=== PATIENT | male | born 1990 | race Caucasian/White ===

== ENCOUNTER 2017-09-06 10:36 | Inpatient (IN) | payer OTHER ==
[~2017-09-06] VITALS: Ht 195.6 cm; Wt 85.4 kg
[2017-09-06 10:41] VITALS: Ht 195.6 cm; Wt 85.4 kg
[2017-09-06] MEDS ORDERED: ONDANSETRON (ODT) 4 MG TAB ODT STA (11:37)
--- NOTE | 2017-09-06 11:59 | ERD ---
ER Documentation Chief Complaint Chief Complaint abdominal pain today HPI 26-year-old male otherwise healthy comes in with mid abdominal pain starting today. The patient describes it as achy pain, moderate to severe and is localized. He states that it does not radiate elsewhere, and reports associated nausea vomiting that is nonbloody nonbilious. He denies any fevers, chills, chest pain, shortness of breath. ROS All systems reviewed and are negative except as per history of present illness. Allergies Allergies: Coded Allergies: No Known Allergy (Unverified , 09/06/17) PMhx/Soc Medical and Surgical Hx: pt denies Medical Hx History of Surgery: Yes (Appendectomy) Hx Tobacco Use: No Physical Exam Vitals Vital Signs Date Time Temp Pulse Resp B/P Pulse Ox O2 Delivery O2 Flow Rate FiO2 09/06/17 10:41 98.2 86 18 135/92 98 Physical Exam General: Well-developed, well-nourished. The patient appears in no acute distress. HEENT: Head is normocephalic, atraumatic. No scleral icterus. Pupils are equal , round, and reactive. Oral mucous membranes are moist. No pharyngeal erythema. Neck: Supple. Nontender. Lungs: Clear to auscultation. Normal air movement. Heart: Regular rate and rhythm. S1 and S2 are normal. No murmurs, gallops, or rubs. Abdomen: Soft, scar present from previous lap appendectomy, there is mid abdominal tenderness, nondistended. Bowel sounds are normoactive. No masses, no hepatosplenomegaly, no rebound pain or guarding. Extremities: No clubbing or cyanosis. Normal pulses. Moving extremities x 4. No weakness. Neurologic: Alert and oriented 3. No focal deficits. Skin: Normal turgor. No rash or lesions. Result Diagram: 09/06/17 1201 09/06/17 1201 Results 24 hrs Laboratory Tests Test 09/06/17 12:01 White Blood Count 8.310^3/ul Red Blood Count 5.5110^6/ul Hemoglobin 16.7g/dl Hematocrit 47.7% Mean Corpuscular Volume 86.6fl Mean Corpuscular Hemoglobin 30.3pg Mean Corpuscular Hemoglobin Concent 35.0g/dl Red Cell Distribution Width 11.5% Platelet Count 93952^3/UL Mean Platelet Volume 9.0fl Neutrophils % 72.1% Lymphocytes % 16.5% Monocytes % 9.7% Eosinophils % 1.0% Basophils % 0.5% Nucleated Red Blood Cells % 0.0/100WBC Neutrophils # 6.010^3/ul Lymphocytes # 1.410^3/ul Monocytes # 0.810^3/ul Eosinophils # 0.110^3/ul Basophils # 0.010^3/ul Nucleated Red Blood Cells # 0.010^3/ul Sodium Level 142mmol/L Potassium Level 3.9mmol/L Chloride Level 100mmol/L Carbon Dioxide Level 31mmol/L Anion Gap 15 Blood Urea Nitrogen 12mg/dl Creatinine 1.09mg/dl Glucose Level 106mg/dl Calcium Level 9.7mg/dl Total Bilirubin 1.1mg/dl Direct Bilirubin 0.00mg/dl Indirect Bilirubin 1.1mg/dl Aspartate Amino Transf (AST/SGOT) 45IU/L Alanine Aminotransferase (ALT/SGPT) 40IU/L Alkaline Phosphatase 86IU/L Total Protein 7.8g/dl Albumin 4.6g/dl Globulin 3.20g/dl Albumin/Globulin Ratio 1.43 Lipase 34U/L Current Medications Medications (Trade) Dose Ordered Sig/Mese[place] Route PRN Reason Start Time Stop Time Status Last Admin Dose Admin Famotidine (Pepcid) 20 mg ONCE ONCE PO 09/06/17 12:00 09/06/17 12:01 DC 09/06/17 11:55 Ondansetron HCl 4 mg 4 mg ONCE STAT ODT 09/06/17 11:37 09/06/17 11:39 DC 09/06/17 11:55 Sodium Chloride (NS) 1,000 ml @ 1,000 mls/hr Q1H ONCE IV 09/06/17 14:00 09/06/17 14:59 DIAGNOSTIC IMAGING REPORT Patient: ALPA ALVAREZ : 1990 Age: 26 Sex: M MR #: [id number] DOS: 09/06/17 1137 Ordering MD: NORAH CARVAJAL PA-C Location: [facility] Room/Bed: PROCEDURE: CT ABDOMEN AND PELVIS WITHOUT CONTRAST. CLINICAL INDICATION: Mid abdominal pain with nausea and vomiting TECHNIQUE: CT scan of the abdomen and pelvis without contrast was performed on a multidetector high-resolution CT scanner. The patient was scanned without intravenous contrast. Coronal and sagittal reformatted images were obtained from the axial source images. Images were reviewed on a high-resolution PACS workstation. The total exam CTDI equals 9.2 mGy and the total exam DLP equals 556 mGy-cm. One or more of the following dose reduction techniques were used: Automated exposure control. Adjustment of the mA and/or kV according to patient size. Use of iterative reconstruction technique. DICOM images are available COMPARISON: None FINDINGS: CT abdomen: The lung bases are clear. The heart size is within normal limits. There is no significant pericardial effusion. Hepatic morphology is within normal limits. No gross contour deforming masses. The gallbladder is within normal normal limits. No evidence of intrahepatic or extrahepatic biliary dilatation. The spleen and pancreas are within normal limits. Both adrenal glands are within normal limits. Both kidneys are in normal anatomic position. No evidence of obstruction or hydronephrosis. No gross renal/ureteric calculi. The visualized GI tract demonstrate multiple loops of dilated small bowel. There appears to be a possible transition point within the lower abdomen/pelvis within a loop of distal small bowel. There is collapse of distal small bowel loops. Postsurgical changes are noted in the region of the cecum. The unenhanced aorta is unremarkable. There is no significant retroperitoneal lymphadenopathy. CT pelvis: The bladder is within normal limits. Free fluid is noted within the pelvis. Rectosigmoid colon is partially collapsed. No significant pelvic lymphadenopathy. The visualized osseous structures demonstrate mild grade 1 retrolisthesis of L5- S1. IMPRESSION: 1. MULTIPLE LOOPS OF DILATED FLUID-FILLED SMALL BOWEL. THERE APPEARS TO BE TRANSITION POINT AND COLLAPSE OF DISTAL LOOPS OF SMALL BOWEL WITHIN THE LOWER ABDOMEN/PELVIS. FINDINGS ARE CONCERNING FOR SMALL BOWEL OBSTRUCTION, POSSIBLY SECONDARY TO UNDERLYING ADHESION. CONSIDER FOLLOW-UP SMALL BOWEL SERIES. 2. Postsurgical changes are noted overlying the cecum. Correlate with possible history of prior appendectomy. 3. Small amount nonspecific free fluid within the pelvis. RPTAT: AAPP Physician Vonda Date Time Electronically viewed and signed by Physician Vonda on 09/06/2017 13:17 1 Procedures/MDM 26-year-old male comes in with mid abdominal pain, nausea vomiting starting today, the patient has a possible bowel obstruction, versus adhesions seen on CT. The patient has not had any bowel movements, and denies any history of flatulence, and we treated for SBO, he had an IV line established, an NG tube was placed. Patient will be admitted for surgical evaluation. My attending physician, Dr. Cueva is aware, and will be admitted. Departure Diagnosis: Primary Impression: Abdominal pain Condition: NORAH Dillard PA-C Sep 06, 2017 11:59
[2017-09-06] MEDS ORDERED: FAMOTIDINE 20 MG TAB PO ONE (12:00)
[2017-09-06 12:13] LABS: BASOPHILS % 0.5 % (0.0-2.0); EOSINOPHILS # 0.1 10^3/ul (0.0-0.5); HEMATOCRIT 47.7 % (42.0-52.0); HEMOGLOBIN 16.7 g/dl (14.0-18.0); LYMPHOCYTES # 1.4 10^3/ul (0.8-2.9); LYMPHOCYTES % 16.5 % (15.0-51.0); MEAN CORPUSCULAR HEMOGLOBIN 30.3 pg (29.0-33.0); MEAN CORPUSCULAR VOLUME 86.6 fl (82.0-101.0); MONOCYTE # 0.8 10^3/ul (0.3-0.9); MONOCYTES % 9.7 % (0.0-11.0); NEUTROPHILS % 72.1 % (39.0-77.0); PLATELET COUNT 289 10^3/UL (140-415); RED BLOOD COUNT 5.51 10^6/ul (4.70-6.10); RED CELL DISTRIBUTION WIDTH 11.5 % (11.5-14.5); WHITE BLOOD COUNT 8.3 10^3/ul (4.8-10.8)
[2017-09-06 12:30] LABS: ALBUMIN 4.6 g/dl (3.3-4.9); ALBUMIN/GLOBULIN RATIO 1.43; BILIRUBIN,INDIRECT 1.1 mg/dl (0-1.1); BILIRUBIN,TOTAL 1.1 mg/dl (0.2-1.3); CALCIUM 9.7 mg/dl (8.4-10.2); CREATININE 1.09 mg/dl (0.61-1.24); POTASSIUM 3.9 mmol/L (3.5-5.1); TOTAL PROTEIN 7.8 g/dl (6.1-8.1)
--- NOTE | 2017-09-06 13:18 | RADRPT ---
PROCEDURE: CT ABDOMEN AND PELVIS WITHOUT CONTRAST. CLINICAL INDICATION: Mid abdominal pain with nausea and vomiting TECHNIQUE: CT scan of the abdomen and pelvis without contrast was performed on a multidetector hig h-resolution CT scanner. The patient was scanned without intravenous contrast. Coronal and sagittal reformatted images were obtained from the axial source images. Images were reviewed on a high-resol [employer] PACS workstation. The total exam CTDI equals 9.2 mGy and the total exam DLP equals 556 mGy-cm. One or more of the following dose reduction techniques were used: Automated exposure control. Adjustment of the mA and/or kV according to patient size. Use of iterative reconstruction technique. DICOM images are available COMPARISON: None FINDINGS: CT abdomen: The lung bases are clear. The heart size is within normal limits. There is no significant pericardia l effusion. Hepatic morphology is within normal limits. No gross contour deforming masses. The gallbladder is wi thin normal normal limits. No evidence of intrahepatic or extrahepatic biliary dilatation. The spleen and pancreas are within normal limits. Both adrenal glands are within normal limits. Both kidneys are in normal anatomic position. No evidence of obstruction or hydronephrosis. No gross renal/ureteric calculi. The visualized GI tract demonstrate multiple loops of dilated small bowel. There appears to be a pos sible transition point within the lower abdomen/pelvis within a loop of distal small bowel. There is collapse of distal small bowel loops. Postsurgical changes are noted in the region of the cecum. The unenhanced aorta is unremarkable. There is no significant retroperitoneal lymphadenopathy. CT pelvis: The bladder is within normal limits. Free fluid is noted within the pelvis. Rectosigmoid colon is pa rtially collapsed. No significant pelvic lymphadenopathy. The visualized osseous structures demonstrate mild grade 1 retrolisthesis of L5-S1. IMPRESSION: 1. MULTIPLE LOOPS OF DILATED FLUID-FILLED SMALL BOWEL. THERE APPEARS TO BE TRANSITION POINT AND ROSALIND APSE OF DISTAL LOOPS OF SMALL BOWEL WITHIN THE LOWER ABDOMEN/PELVIS. FINDINGS ARE CONCERNING FOR SMA LL BOWEL OBSTRUCTION, POSSIBLY SECONDARY TO UNDERLYING ADHESION. CONSIDER FOLLOW-UP SMALL BOWEL SERI ES. 2. Postsurgical changes are noted overlying the cecum. Correlate with possible history of prior appe ndectomy. 3. Small amount nonspecific free fluid within the pelvis. RPTAT: AAPP Cesar Trinh, Physician Date Time Electronically viewed and signed by Cesar Trinh Physician on 09/06/2017 13:17 JL/
[2017-09-06] MEDS ORDERED: SOD CHLORIDE 0.9% 1,000 ML IV ONE (14:00)
--- NOTE | 2017-09-06 14:44 | RADRPT ---
PROCEDURE: XR Chest. CLINICAL INDICATION: NG tube placement TECHNIQUE: Single portable view of the chest was obtained COMPARISON: No priors for comparison FINDINGS: The trachea is midline. The cardiac silhouette and pulmonary vascularity are within normal limits. T he lungs are clear. The costophrenic angles are sharp. There is an NG tube with distal tip at the di stal esophagus. IMPRESSION: 1. No evidence of acute cardiopulmonary disease. 2. NG TUBE WITH DISTAL TIP AT THE DISTAL ESOPHAGUS. RECOMMEND FURTHER ADVANCEMENT. RPTAT: AAPP Physician Vonda Date Time Electronically viewed and signed by Physician Vonda on 09/06/2017 14:43 JL/
--- NOTE | 2017-09-06 14:45 | EN ---
Date/Time of Note Date/Time of Note DATE: 09/06/17 TIME: 14:44 ER Progress Note I have seen and evaluated the patient along with the PA and/or VETERINARY ATTENDANT provider. I agree with the evaluation and plan of care. Please see their documentation for full ER course and evaluation. In short: Nausea vomiting abdominal pain and the patient with prior history of appendectomy On exam: Generalized abdominal pain, decreased bowel sounds Assessment and plan: The patient has a CT showing evidence of potential small bowel obstruction. Given the patient's prior surgical history this seems consistent with his exam. The patient will have an NG tube IV fluids and pain medication. General surgery consultation is necessary. Dr. Mejia Dorsey has been paged multiple times without callback. I spoke to Dr. Turner who recommends calling another surgeon. We will continue to make phone calls for admission. Accepting care team and consultations: I discussed the current laboratory data, diagnostic imaging and emergency care provided. Admitting team: Dr. Ko Admitting team indication: Insurance directed GALO MACHADO MD Sep 06, 2017 14:45
[2017-09-06] MEDS ORDERED: ACETAMINOPHEN 325 MG TAB PO PRN (15:00)
[2017-09-06] MEDS ORDERED: ONDANSETRON 4 MG INJ IV PRN ×2 (15:00→15:30)
--- NOTE | 2017-09-06 15:12 | RADRPT ---
PROCEDURE: XR Chest 1 View. CLINICAL INDICATION: Status post nasogastric tube placement. TECHNIQUE: Single view of the chest was obtained. COMPARISON: September 06, 2017 at 02:39 p.m. FINDINGS: The cardiomediastinal silhouette is within normal limits. Nasogastric tube has its distal end in the expected location of the stomach and proximal side hole at the level of the gastroesophageal juncti on. The lungs are hyperexpanded. No consolidations are identified. No pneumothorax is seen. The os seous structures are unchanged. IMPRESSION: Nasogastric tube has its distal end in the expected location of the stomach and its proximal side ho le at the level of the gastroesophageal junction. Advancement by approximately 5 cm is advised. Hyperexpanded, clear lungs. RPTAT: AA .Jeffrey Oseguera MD, Date Time Electronically viewed and signed by .Jeffrey Oseguera MD, MD on 09/06/2017 15:12 .P/
--- NOTE | 2017-09-06 15:19 | HP ---
Date/Time of Note Date/Time of Note DATE: 09/06/17 TIME: 15:14 Assessment/Plan VTE Prophylaxis VTE Prophylaxis Intervention: ambulation Assessment/Plan Chief Complaint/Hosp Course 26-year-old male with a recent appendectomy, presenting to the emergency room with abdominal pain and intractable nonbilious, nonbloody vomiting started early this morning who was noted with possible small bowel obstruction in the imaging. 1. Possible Small bowel obstruction, likely secondary to postoperative adhesions. Status: Acute -Admit as inpatient. -NG tube decompression, Strict bowel rest, IV fluids, pain control. Obtain small bowel follow-through. -Monitor electrolyte level closely and replete as indicated. -Surgical consult with Dr. Dorsey has been requested and we will follow-up with recommendation. 2. Recent appendectomy. DVT prophylaxis: SCD PUD prophylaxis: Pepcid Rest of the management depend on hospital course. Approximately 60 minute was spent on this history and physical. Patient was seen in collaboration with . Problems: HPI/ROS Admit Date/Time Admit Date/Time Hx of Present Illness This is a 26-year-old male with a past medical history of appendicitis with recent laparoscopic appendectomy 2 months ago, otherwise healthy, presented to the emergency room for evaluation of mid epigastric abdominal pain with intractable nonbilious, nonbloody vomiting that started early this morning. Patient denied any chest pain, palpitation, shortness of breath, dizziness, constipation, diarrhea, fever, chills, hematochezia, hematemesis, melena or other constitutional symptoms. Initial CBC and BMP within acceptable range. Vital signs stable. A CT abdomen and pelvis showed multiple loops of dilated fluid-filled small bowel concerning for small bowel obstruction possibly secondary to underlying adhesion. A small bowel series was recommended for follow-up. In the emergency room patient was treated with IV fluids and pain medication and was admitted for further evaluation. He also had NG tube inserted in the emergency room draining small amount of greenish drainage. A surgery consultation was also called from the emergency room. ROS A 12 point review of system was assessed and is negative other than what is mentioned in the HPI. PMH/Family/Social Past Medical History See HPI Past Surgical History See HPI Social History Patient denied history of alcohol, smoking or illicit drug use. Smoking Status: Never smoker Exam/Review of Systems Vital Signs Vitals Vital Signs Date Time Temp Pulse Resp B/P Pulse Ox O2 Delivery O2 Flow Rate FiO2 09/06/17 10:41 98.2 86 18 135/92 98 Exam Exam General: Well developed,adequately built, not in any acute distress . HEENT: Normocephalic, Atraumatic, No laceration or hematoma; Eyes: PEERL, Conjunctiva clear, Anicteric sclera Neck: Supple without any lymphadenopathy, nontender, no JVD, no carotid bruits, trachea midline, no thyromegaly Cardiac: S1, S2 auscultated, regular rhythm and rate, no mumurs or gallop Pulmonary: Normal respiratory effort. Chest clear to auscultation bilaterally, no adventitious breath sounds GI: With NG tube in place. Having mild tenderness to mid abdominal area. No rebound tenderness or distention. Hypoactive bowel sounds. Genitourinary: Deferred Extremities: No cyanosis, clubbing, or edema. Pulses [2+] bilaterally. Full ROM on all four extremities. No focal weakness appreciated. Neurologic: Alert to person, place, time, and situation. Affect appropriate, intact sensation. Skin: Clean,dry, and intact. No ecchymosis, no rashes, or lesions Labs Result Diagram: 09/06/17 1201 09/06/17 1201 CHRIS ARGUETA NP Sep 06, 2017 15:19
[2017-09-06] MEDS ORDERED: ACETAMINOPHEN 650 MG SUPP PR PRN (15:30)
[2017-09-06] MEDS ORDERED: NACL 0.9% 3 ML SYG IV SCH (15:30)
[2017-09-06] MEDS ORDERED: SOD CHLORIDE 0.9% 500 ML IV ONE (15:30)
[2017-09-06] MEDS: morphine 2 MG INJ IV PRN ×2 (15:46→21:34)
[2017-09-06 16:11] VITALS: TEMP 99.1
[2017-09-06] MEDS: NS + KCL 20 MEQ 1,000 ML IV SCH (17:09)
[2017-09-06 17:21] VITALS: BP 138/83; PULSE 68; RESP 18
[2017-09-06 20:40] VITALS: BP 107/58; RESP 19
[2017-09-07] MEDS: NS + KCL 20 MEQ 1,000 ML IV SCH ×4 (00:50→22:52)
[2017-09-07 02:45] VITALS: BP 102/58; RESP 18
[2017-09-07 05:03] LABS: BASOPHIL # 0.1 10^3/ul (0.0-0.1); BASOPHILS % 0.6 % (0.0-2.0); EOSINOPHILS # 0.1 10^3/ul (0.0-0.5); EOSINOPHILS % 1.7 % (0.0-7.0); HEMATOCRIT 40.7 % (42.0-52.0); HEMOGLOBIN 13.8 g/dl (14.0-18.0); LYMPHOCYTES # 2.1 10^3/ul (0.8-2.9); LYMPHOCYTES % 24.7 % (15.0-51.0); MEAN CORPUSCULAR HEMOGLOBIN 29.9 pg (29.0-33.0); MEAN CORPUSCULAR HGB CONC 33.9 g/dl (32.0-37.0); MEAN CORPUSCULAR VOLUME 88.1 fl (82.0-101.0); MONOCYTES % 11.4 % (0.0-11.0); NEUTROPHIL # 5.2 10^3/ul (1.6-7.5); NEUTROPHILS % 61.4 % (39.0-77.0); PLATELET COUNT 254 10^3/UL (140-415); RED BLOOD COUNT 4.62 10^6/ul (4.70-6.10); RED CELL DISTRIBUTION WIDTH 11.9 % (11.5-14.5); WHITE BLOOD COUNT 8.4 10^3/ul (4.8-10.8)
[2017-09-07 06:20] LABS: ALBUMIN 3.2 g/dl (3.3-4.9); ALBUMIN/GLOBULIN RATIO 1.14; CALCIUM 8.6 mg/dl (8.4-10.2); CHOL/HDL RATIO 2.7 RATIO; CREATININE 1.12 mg/dl (0.61-1.24); MAGNESIUM 1.8 mg/dl (1.7-2.5); PHOSPHORUS 3.2 mg/dl (2.5-4.9); POTASSIUM 3.8 mmol/L (3.5-5.1)
[2017-09-07 06:48] LABS: THYROID STIMULATING HORMONE 0.866 MIU/L (0.465-4.680)
[2017-09-07 08:26] VITALS: BP 110/60; RESP 18
--- NOTE | 2017-09-07 10:26 | CONS ---
Date/Time of Note Date/Time of Note DATE: 09/07/17 TIME: 10:20 Assessment/Plan Assessment/Plan Chief Complaint/Hosp Course 1. ?sbo: CT: noted; currently passing flatus, improved pain -sbft -ngt -npo 2. Abdominal pain: 2/2 above; improved -pain management 3. Normoocytic normochromic anemia: -monitor -transfuse as needed 4. Hypoalbuminemia: -optimize nutrition Thank you. Patient seen and examined in collaboration with Dr. Juan Dorsey. Problems: Consultation Date/Type/Reason Admit Date/Time Date of Consultation: Sep 07, 2017 Type of Consultation: surgical Reason for Consultation ?sbo Referring Provider: GALO MACHADO MD Hx of Present Illness Jefferson Galan is a 26-year-old man who presented with mid abdominal pain starting today. The patient describes it as achy pain, moderate to severe and is localized to the right lower quadrant. He states that it does not radiate elsewhere, and reports associated nausea vomiting that is nonbloody, nonbilious. He denies any fevers, chills, chest pain, shortness of breath, change in bowel pattern. He denies any aggravating or alleviating factors. General surgery was asked to evaluate. Constitutional: No disoriented, No febrile Eyes: No visual change ENT: No congestion, No dysphagia, No pain Respiratory: No cough, No shortness of breath Cardiovascular: No chest pain, No lightheadedness, No palpitations Gastrointestinal: pain, vomiting Genitourinary: No dysuria Musculoskeletal: No neck pain Skin: No bruising, No rash Neurologic: No confusion, No focal-weakness, No headache Psychological: anxiety Past Medical History Medical History: no pertinent history Past Surgical History appendectomy Family History Significant Family History: no pertinent family hx Social History Alcohol Use: other (denies) Smoking Status: Former smoker Drug Use: other (denies) Exam/Review of Systems Vital Signs Vitals Vital Signs Date Time Temp Pulse Resp B/P Pulse Ox O2 Delivery O2 Flow Rate FiO2 09/07/17 08:26 98.2 79 18 110/60 100 09/06/17 16:11 Room Air Intake and Output 09/06/17 09/06/17 09/07/17 14:59 22:59 06:59 Intake Total 1775 ml Output Total 500 ml Balance 1275 ml Exam Constitutional: alert, oriented Psych: no complaints Head: atraumatic, normocephalic Eyes: nl lids, nl sclera ENMT: mucosa pink and moist, nl nasal mucosa & septum, other Neck: non-tender, supple Respiratory: clear to auscultation, normal air movement Cardiovascular: nl pulses, regular rate and rhythm Gastrointestinal: soft, tender, No distended Musculoskeletal: nl extremities to inspection, nl gait and stance Extremities: normal pulses Neurological: nl mental status, nl speech, nl strength Skin: No rash or lesions Results Result Diagram: 09/07/176 09/07/17425 Results 24 hrs Laboratory Tests Test 09/06/17 12:01 09/07/17 04:26 White Blood Count 8.3 8.4 Red Blood Count 5.51 4.62 L Hemoglobin 16.7 13.8 L Hematocrit 47.7 40.7 L Mean Corpuscular Volume 86.6 88.1 Mean Corpuscular Hemoglobin 30.3 29.9 Mean Corpuscular Hemoglobin Concent 35.0 33.9 Red Cell Distribution Width 11.5 11.9 Platelet Count 289 254 Mean Platelet Volume 9.0 9.0 Neutrophils % 72.1 61.4 Lymphocytes % 16.5 24.7 Monocytes % 9.7 11.4 H Eosinophils % 1.0 1.7 Basophils % 0.5 0.6 Nucleated Red Blood Cells % 0.0 0.0 Neutrophils # 6.0 5.2 Lymphocytes # 1.4 2.1 Monocytes # 0.8 1.0 H Eosinophils # 0.1 0.1 Basophils # 0.0 0.1 Nucleated Red Blood Cells # 0.0 0.0 Sodium Level 142 141 Potassium Level 3.9 3.8 Chloride Level 100 106 Carbon Dioxide Level 31 29 Anion Gap 15 10 # Blood Urea Nitrogen 12 11 Creatinine 1.09 1.12 Glucose Level 106 83 Calcium Level 9.7 8.6 Total Bilirubin 1.1 1.0 Direct Bilirubin 0.00 0.00 Indirect Bilirubin 1.1 1.0 Aspartate Amino Transf (AST/SGOT) 45 28 Alanine Aminotransferase (ALT/SGPT) 40 37 Alkaline Phosphatase 86 59 Total Protein 7.8 6.0 #L Albumin 4.6 3.2 #L Globulin 3.20 2.80 Albumin/Globulin Ratio 1.43 1.14 Lipase 34 Hemoglobin A1c 5.0 Phosphorus Level 3.2 Magnesium Level 1.8 Triglycerides Level 51 Cholesterol Level 81 L LDL Cholesterol, Calculated 41 HDL Cholesterol 30 Cholesterol/HDL Ratio 2.7 Thyroid Stimulating Hormone (TSH) 0.866 Medications Medications Current Medications Potassium Chloride/Sodium Chloride (NS-KCl 20 Meq) 1,000 ml @ 125 mls/hr Q8H IV Last administered on 09/07/17 00:50; Admin Dose 125 MLS/HR; Start at 15:08 Ondansetron HCl (Zofran Inj) 4 mg Q6H PRN IV NAUSEA AND/OR VOMITING Last administered on 09/06/17 15:45; Admin Dose 4 MG; Start 09/06/17 at 15:30 Acetaminophen (Tylenol Supp) 650 mg Q6H PRN GA PAIN LEVEL 1-3 OR FEVER; Start 09/06/17 at 15:30 Morphine Sulfate (morphine) 2 mg Q4H PRN IV SEVERE PAIN LEVEL 7-10 Last administered on 09/06/17 21:34; Admin Dose 2 MG; Start 09/06/17 at 15:30 Influenza Virus Vaccine (Fluzone) 0.5 ml ONCE ONCE IM* ; Start 09/08/17 at 09: 00; Stop 09/08/17 at 09:01 SELENA OROZCO NP Sep 07, 2017 10:26
--- NOTE | 2017-09-07 10:30 | PN ---
Date/Time of Note Date/Time of Note DATE: 09/07/17 TIME: 10:28 Assessment/Plan VTE Prophylaxis VTE Prophylaxis Intervention: SCD's Lines/Catheters IV [facility] Type (from [facility]): Peripheral IV Urinary Cath still in place: No Assessment/Plan Chief Complaint/Hosp Course 26-year-old male with a recent appendectomy, presenting to the emergency room with abdominal pain and intractable nonbilious, nonbloody vomiting started early this morning who was noted with possible small bowel obstruction in the imaging. 1. Possible Small bowel obstruction, likely secondary to postoperative adhesions. Status: Acute -Surgery on board and we will follow-up with recommendation. Continue with bowel rest, IV fluids, pain control. Follow-up small bowel x-ray. -Monitor electrolyte level closely and replete as indicated. 2. Recent appendectomy. DVT prophylaxis: SCD PUD prophylaxis: Pepcid Patient was seen in collaboration with . Problems: Subjective 24 Hr Interval Summary Free Text/Dictation No acute overnight episodes. Exam/Review of Systems Vital Signs Vitals Vital Signs Date Time Temp Pulse Resp B/P Pulse Ox O2 Delivery O2 Flow Rate FiO2 09/07/17 08:26 98.2 79 18 110/60 100 09/06/17 16:11 Room Air Intake and Output 09/06/17 09/06/17 09/07/17 14:59 22:59 06:59 Intake Total 1775 ml Output Total 500 ml Balance 1275 ml Exam General: Well developed,adequately built, not in any acute distress . HEENT: Normocephalic, Atraumatic, No laceration or hematoma; Eyes: PEERL, Conjunctiva clear, Anicteric sclera Neck: Supple without any lymphadenopathy, nontender, no JVD, no carotid bruits, trachea midline, no thyromegaly Cardiac: S1, S2 auscultated, regular rhythm and rate, no mumurs or gallop Pulmonary: Normal respiratory effort. Chest clear to auscultation bilaterally, no adventitious breath sounds GI: With NG tube in place-clamped currently. Having mild tenderness to mid abdominal area. No rebound tenderness or distention. Hypoactive bowel sounds. Genitourinary: Deferred Extremities: No cyanosis, clubbing, or edema. Pulses [2+] bilaterally. Full ROM on all four extremities. No focal weakness appreciated. Neurologic: Alert to person, place, time, and situation. Affect appropriate, intact sensation. Skin: Clean,dry, and intact. No ecchymosis, no rashes, or lesions Results Result Diagram: 09/07/176 09/07/17 0426 Results 24 hrs Laboratory Tests Test 09/06/17 12:01 09/07/17 04:26 White Blood Count 8.3 8.4 Red Blood Count 5.51 4.62 L Hemoglobin 16.7 13.8 L Hematocrit 47.7 40.7 L Mean Corpuscular Volume 86.6 88.1 Mean Corpuscular Hemoglobin 30.3 29.9 Mean Corpuscular Hemoglobin Concent 35.0 33.9 Red Cell Distribution Width 11.5 11.9 Platelet Count 289 254 Mean Platelet Volume 9.0 9.0 Neutrophils % 72.1 61.4 Lymphocytes % 16.5 24.7 Monocytes % 9.7 11.4 H Eosinophils % 1.0 1.7 Basophils % 0.5 0.6 Nucleated Red Blood Cells % 0.0 0.0 Neutrophils # 6.0 5.2 Lymphocytes # 1.4 2.1 Monocytes # 0.8 1.0 H Eosinophils # 0.1 0.1 Basophils # 0.0 0.1 Nucleated Red Blood Cells # 0.0 0.0 Sodium Level 142 141 Potassium Level 3.9 3.8 Chloride Level 100 106 Carbon Dioxide Level 31 29 Anion Gap 15 10 # Blood Urea Nitrogen 12 11 Creatinine 1.09 1.12 Glucose Level 106 83 Calcium Level 9.7 8.6 Total Bilirubin 1.1 1.0 Direct Bilirubin 0.00 0.00 Indirect Bilirubin 1.1 1.0 Aspartate Amino Transf (AST/SGOT) 45 28 Alanine Aminotransferase (ALT/SGPT) 40 37 Alkaline Phosphatase 86 59 Total Protein 7.8 6.0 #L Albumin 4.6 3.2 #L Globulin 3.20 2.80 Albumin/Globulin Ratio 1.43 1.14 Lipase 34 Hemoglobin A1c 5.0 Phosphorus Level 3.2 Magnesium Level 1.8 Triglycerides Level 51 Cholesterol Level 81 L LDL Cholesterol, Calculated 41 HDL Cholesterol 30 Cholesterol/HDL Ratio 2.7 Thyroid Stimulating Hormone (TSH) 0.866 Medications Medications Current Medications Potassium Chloride/Sodium Chloride (NS-KCl 20 Meq) 1,000 ml @ 125 mls/hr Q8H IV Last administered on 09/07/17t 00:50; Admin Dose 125 MLS/HR; Start at 15:08 Ondansetron HCl (Zofran Inj) 4 mg Q6H PRN IV NAUSEA AND/OR VOMITING Last administered on 09/06/17 15:45; Admin Dose 4 MG; Start 09/06/17 at 15:30 Acetaminophen (Tylenol Supp) 650 mg Q6H PRN [place] PAIN LEVEL 1-3 OR FEVER; Start 09/06/17 at 15:30 Morphine Sulfate (morphine) 2 mg Q4H PRN IV SEVERE PAIN LEVEL 7-10 Last administered on 09/06/17 21:34; Admin Dose 2 MG; Start 09/06/17 at 15:30 Influenza Virus Vaccine (Fluzone) 0.5 ml ONCE ONCE IM* ; Start 09/08/17 at 09: 00; Stop 09/08/17 at 09:01 CHRIS ARGUETA NP Sep 07, 2017 10:30
[2017-09-07] MEDS: morphine 2 MG INJ IV PRN ×3 (11:10→22:30)
--- NOTE | 2017-09-07 16:34 | RADRPT ---
PROCEDURE: XR small-bowel follow-through. CLINICAL INDICATION: Abdominal pain and distension. Rule out obstruction. TECHNIQUE: Multiple overhead radiographs of the abdomen were obtained following the uncomplicated administration of 190 cc oral Omnipaque-300 contrast via the indwelling nasogastric tube. COMPARISON: Abdomen pelvis CT 09/06/2017. FINDINGS: Several mildly to moderately dilated small bowel loops are noted measuring up to 3.5 cm in diameter which is concerning for partial obstruction versus ileus. Contrast flows through the bowel loops and reaches the colon as early as 45 minutes. IMPRESSION: 1. Mildly to moderately dilated small bowel loops concerning for partial obstruction versus ileus. RPTAT: QQ .Lopez Dickens MD, Date Time Electronically viewed and signed by .Lopez Dickens MD, MD on 09/07/2017 16:34 .N/
[2017-09-07 16:41] VITALS: BP 120/67; RESP 18
[2017-09-07 19:48] VITALS: BP 122/70; RESP 18
[2017-09-08 05:54] LABS: BASOPHILS % 0.6 % (0.0-2.0); EOSINOPHILS # 0.2 10^3/ul (0.0-0.5); EOSINOPHILS % 2.6 % (0.0-7.0); HEMATOCRIT 40.6 % (42.0-52.0); HEMOGLOBIN 13.9 g/dl (14.0-18.0); LYMPHOCYTES # 2.1 10^3/ul (0.8-2.9); LYMPHOCYTES % 30.5 % (15.0-51.0); MEAN CORPUSCULAR HEMOGLOBIN 30.2 pg (29.0-33.0); MEAN CORPUSCULAR HGB CONC 34.2 g/dl (32.0-37.0); MEAN CORPUSCULAR VOLUME 88.3 fl (82.0-101.0); MEAN PLATELET VOLUME 9.3 fl (7.4-10.4); MONOCYTE # 0.7 10^3/ul (0.3-0.9); MONOCYTES % 10.8 % (0.0-11.0); NEUTROPHIL # 3.8 10^3/ul (1.6-7.5); NEUTROPHILS % 55.2 % (39.0-77.0); PLATELET COUNT 239 10^3/UL (140-415); RED CELL DISTRIBUTION WIDTH 11.4 % (11.5-14.5); WHITE BLOOD COUNT 6.8 10^3/ul (4.8-10.8)
[2017-09-08] MEDS: NS + KCL 20 MEQ 1,000 ML IV SCH ×3 (06:19→23:13)
[2017-09-08] MEDS: morphine 2 MG INJ IV PRN ×3 (06:20→15:58)
[2017-09-08 06:39] LABS: CALCIUM 8.5 mg/dl (8.4-10.2); CREATININE 1.04 mg/dl (0.61-1.24); POTASSIUM 3.9 mmol/L (3.5-5.1)
[2017-09-08] MEDS ORDERED: INFLUENZA VIRUS VACCINE 0.5 ML (DISPENSING) IM* ONE (09:00)
[2017-09-08] MEDS ORDERED: LORAZEPAM 2 MG INJ IV PRN (11:00)
--- NOTE | 2017-09-08 11:00 | PN ---
Date/Time of Note Date/Time of Note DATE: 09/08/17 TIME: 10:58 Assessment/Plan VTE Prophylaxis VTE Prophylaxis Intervention: ambulation Lines/Catheters IV [facility] Type (from [facility]): Peripheral IV Urinary Cath still in place: No Assessment/Plan Chief Complaint/Hosp Course 26-year-old male with a recent appendectomy, presenting to the emergency room with abdominal pain and intractable nonbilious, nonbloody vomiting started early this morning who was noted with possible small bowel obstruction in the imaging. 1. Small bowel obstruction vs Postoperative Ileus. Clinically improving. Status: Acute -Small bowel x-ray showed partial SBO versus ileus. -Currently with NG tube clamped. We will follow-up with surgery recommendation on diet. -Continue IV fluids, antiemetics and pain control. Add Reglan. -Monitor electrolyte level closely and replete as indicated. 2. Recent appendectomy. 3. Possible GERD. -We will start patient on Protonix. DVT prophylaxis: SCD PUD prophylaxis: Protonix Patient was seen in collaboration with . Problems: Subjective 24 Hr Interval Summary Free Text/Dictation Patient still with NG tube clamped. N.p.o. status. He reports burning epigastric/substernal pain. Exam/Review of Systems Vital Signs Vitals Vital Signs Date Time Temp Pulse Resp B/P Pulse Ox O2 Delivery O2 Flow Rate FiO2 09/07/17 19:48 98.7 60 18 122/70 98 09/06/17 16:11 Room Air Intake and Output 09/07/17 09/07/17 09/08/17 14:59 22:59 06:59 Intake Total 375 ml 1000 ml Output Total 1500 ml Balance 375 ml -500 ml Exam General: Well developed,adequately built, not in any acute distress . HEENT: Normocephalic, Atraumatic, No laceration or hematoma; Eyes: PEERL, Conjunctiva clear, Anicteric sclera Neck: Supple without any lymphadenopathy, nontender, no JVD, no carotid bruits, trachea midline, no thyromegaly Cardiac: S1, S2 auscultated, regular rhythm and rate, no mumurs or gallop Pulmonary: Normal respiratory effort. Chest clear to auscultation bilaterally, no adventitious breath sounds GI: With NG tube in place-clamped currently. Having epigastric burning pain.. No abdominal tenderness, rebound tenderness or distention. Hypoactive bowel sounds. Genitourinary: Deferred Extremities: No cyanosis, clubbing, or edema. Pulses [2+] bilaterally. Full ROM on all four extremities. No focal weakness appreciated. Neurologic: Alert to person, place, time, and situation. Affect appropriate, intact sensation. Skin: Clean,dry, and intact. No ecchymosis, no rashes, or lesions Results Result Diagram: 09/08/17 0453 09/08/17 0453 Results 24 hrs Laboratory Tests Test 09/08/17 04:53 White Blood Count 6.8 Red Blood Count 4.60 L Hemoglobin 13.9 L Hematocrit 40.6 L Mean Corpuscular Volume 88.3 Mean Corpuscular Hemoglobin 30.2 Mean Corpuscular Hemoglobin Concent 34.2 Red Cell Distribution Width 11.4 L Platelet Count 239 Mean Platelet Volume 9.3 Neutrophils % 55.2 Lymphocytes % 30.5 Monocytes % 10.8 Eosinophils % 2.6 Basophils % 0.6 Nucleated Red Blood Cells % 0.0 Neutrophils # 3.8 Lymphocytes # 2.1 Monocytes # 0.7 Eosinophils # 0.2 Basophils # 0.0 Nucleated Red Blood Cells # 0.0 Sodium Level 139 Potassium Level 3.9 Chloride Level 102 Carbon Dioxide Level 26 Anion Gap 15 Blood Urea Nitrogen 12 Creatinine 1.04 Glucose Level 63 #L Calcium Level 8.5 Medications Medications Current Medications Potassium Chloride/Sodium Chloride (NS-KCl 20 Meq) 1,000 ml @ 125 mls/hr Q8H IV Last administered on 09/08/17 06:19; Admin Dose 125 MLS/HR; Start at 15:08 Ondansetron HCl (Zofran Inj) 4 mg Q6H PRN IV NAUSEA AND/OR VOMITING Last administered on 09/06/17 15:45; Admin Dose 4 MG; Start 09/06/17 at 15:30 Acetaminophen (Tylenol Supp) 650 mg Q6H PRN [place] PAIN LEVEL 1-3 OR FEVER; Start 09/06/17 at 15:30 Morphine Sulfate (morphine) 2 mg Q4H PRN IV SEVERE PAIN LEVEL 7-10 Last administered on 09/08/17 10:10; Admin Dose 2 MG; Start 09/06/17 at 15:30 CHRIS ARGUETA NP Sep 08, 2017 11:00
[2017-09-08] MEDS: METOCLOPRAMIDE 10 MG INJ IV SCH ×3 (12:00→18:27)
--- NOTE | 2017-09-08 12:35 | PN ---
Date/Time of Note Date/Time of Note DATE: 09/08/17 TIME: 12:29 Assessment/Plan Lines/Catheters IV Catheter Type (from Nrs): Peripheral IV Rice in Place (from Nrs): No Assessment/Plan Chief Complaint/Hosp Course 1. ?sbo (doubt) vs. ileus; CT and sbft: noted; +bowel function; RLQ pain resolved; now with epigastric burning -start clears trial -ngtube out 2. Abdominal pain: 2/2 above; RLQ pain resolved; now w epigastric burning (? ulcers, gerd) -pain management -consider gi eval 3. Normoocytic normochromic anemia: -monitor -transfuse as needed 4. Hypoalbuminemia: -optimize nutrition Thank you. Patient seen and examined in collaboration with Dr. Juan Dorsey. Problems: Subjective 24 Hr Interval Summary Feels better. RLQ pain resolved. Now complaining of epigastric burning. SBFT noted. +bowel function. No fevers, chills, sob, congested cough, cp, palpitations, retana, dizziness, n/v/d/dysuria. Exam/Review of Systems Vital Signs Vitals Vital Signs Date Time Temp Pulse Resp B/P Pulse Ox O2 Delivery O2 Flow Rate FiO2 09/07/17 19:48 98.7 60 18 122/70 98 09/06/17 16:11 Room Air Intake and Output 09/07/17 09/07/17 09/08/17 14:59 22:59 06:59 Intake Total 375 ml 1000 ml Output Total 1500 ml Balance 375 ml -500 ml Exam Free Text/Dictation Constitutional: alert, oriented Psych: no complaints Head: atraumatic, normocephalic Eyes: nl lids, nl sclera ENMT: mucosa pink and moist, nl nasal mucosa & septum, ngt Neck: non-tender, supple Respiratory: clear to auscultation, normal air movement Cardiovascular: nl pulses, regular rate and rhythm Gastrointestinal: soft, min tender, epigastric No distended Musculoskeletal: nl extremities to inspection, nl gait and stance Extremities: normal pulses Neurological: nl mental status, nl speech, nl strength Skin: No rash or lesions Results Result Diagram: 09/08/17 0453 09/08/17 0453 SELENA OROZCO NP Sep 08, 2017 12:35
[2017-09-08] MEDS: PANTOPRAZOLE 40 MG INJ IV SCH (18:27)
[2017-09-08 19:10] VITALS: BP 102/50; RESP 18
[2017-09-09] MEDS: METOCLOPRAMIDE 10 MG INJ IV SCH ×3 (00:10→12:00)
[2017-09-09 01:31] VITALS: BP 123/76; RESP 20
[2017-09-09 05:49] LABS: BASOPHILS % 0.5 % (0.0-2.0); EOSINOPHILS # 0.2 10^3/ul (0.0-0.5); EOSINOPHILS % 2.8 % (0.0-7.0); HEMATOCRIT 40.3 % (42.0-52.0); HEMOGLOBIN 14.2 g/dl (14.0-18.0); LYMPHOCYTES # 1.7 10^3/ul (0.8-2.9); LYMPHOCYTES % 27.6 % (15.0-51.0); MEAN CORPUSCULAR HEMOGLOBIN 30.6 pg (29.0-33.0); MEAN CORPUSCULAR HGB CONC 35.2 g/dl (32.0-37.0); MEAN CORPUSCULAR VOLUME 86.9 fl (82.0-101.0); MONOCYTE # 0.7 10^3/ul (0.3-0.9); MONOCYTES % 11.9 % (0.0-11.0); NEUTROPHIL # 3.5 10^3/ul (1.6-7.5); NEUTROPHILS % 56.9 % (39.0-77.0); PLATELET COUNT 260 10^3/UL (140-415); RED BLOOD COUNT 4.64 10^6/ul (4.70-6.10); RED CELL DISTRIBUTION WIDTH 11.5 % (11.5-14.5); WHITE BLOOD COUNT 6.2 10^3/ul (4.8-10.8)
[2017-09-09 06:22] LABS: CALCIUM 8.9 mg/dl (8.4-10.2); CREATININE 1.08 mg/dl (0.61-1.24); MAGNESIUM 1.8 mg/dl (1.7-2.5); POTASSIUM 4.1 mmol/L (3.5-5.1)
[2017-09-09] MEDS: PANTOPRAZOLE 40 MG INJ IV SCH (06:40)
[2017-09-09] MEDS: NS + KCL 20 MEQ 1,000 ML IV SCH (06:42)
[2017-09-09 08:35] VITALS: BP 117/64; RESP 18
--- NOTE | 2017-09-09 11:00 | PN ---
Date/Time of Note Date/Time of Note DATE: 09/09/17 TIME: 10:56 Assessment/Plan Lines/Catheters IV Catheter Type (from [facility]): Peripheral IV Rice in Place (from [facility]): No Assessment/Plan Chief Complaint/Hosp Course 1. ?sbo (doubt) vs. ileus; CT and sbft: noted; +bowel function; abdominal pain resolved -tolerated solid diet w +bowel function -may be discharged per medical team with follow up w primary and possible gi specialist if abdominal/epigastric pain recurrent or persistent 2. Abdominal pain: 2/2 above; RLQ pain resolved; now w epigastric burning (? ulcers, gerd) -pain management -as above 3. Normoocytic normochromic anemia: -monitor -transfuse as needed 4. Hypoalbuminemia: -optimize nutrition Thank you. Patient seen and examined in collaboration with Dr. Juan Dorsey. Problems: Subjective 24 Hr Interval Summary Abdominal pain improved w protonix. +bowel function. Able to tolerate solid diet. No fevers, chills, sob, congested cough, cp, palpitations, retana, dizziness, n/v/d/dysuria. Exam/Review of Systems Vital Signs Vitals Vital Signs Date Time Temp Pulse Resp B/P Pulse Ox O2 Delivery O2 Flow Rate FiO2 09/09/17 08:35 98.2 65 18 117/64 97 09/06/17 16:11 Room Air Intake and Output 09/08/17 09/08/17 09/09/17 15:00 23:00 07:00 Intake Total 1900 ml 2500 ml Output Total 800 ml 1000 ml Balance 1100 ml 1500 ml Exam Free Text/Dictation Constitutional: alert, oriented Psych: no complaints Head: atraumatic, normocephalic Eyes: nl lids, nl sclera ENMT: mucosa pink and moist, nl nasal mucosa & septum, ngt Neck: non-tender, supple Respiratory: clear to auscultation, normal air movement Cardiovascular: nl pulses, regular rate and rhythm Gastrointestinal: soft, non tender No distended Musculoskeletal: nl extremities to inspection, nl gait and stance Extremities: normal pulses Neurological: nl mental status, nl speech, nl strength Skin: No rash or lesions Results Result Diagram: 09/09/17 0511 09/09/17 0511 SELENA OROZCO NP Sep 09, 2017 11:00
--- NOTE | 2017-09-09 11:25 | PDOCDIS ---
Discharge Instructions CONDITION Patient Condition: Stable HOME CARE INSTRUCTIONS: Diet Instructions: Regular FOLLOW UP/APPOINTMENTS Follow-up Plan 1.Follow up with primary care physician in 1 week If you don't have one please let someone know, we can give you resources that may help you pick one. You may also call your insurance company to assign one to you. Review your medication list with your nurse before leaving and if you need new prescriptions please let your nurse know. I may have made changes to your home medications or given you new prescriptions, please let your primary doctor know as well. Stay compliant with your medications and report any side effects to your PCP or pharmacist. Return to the ER if you have any concerns and cannot reach your doctors or call your insurance company, they usually have a nurse that can help you. 2. Call 911 or go to the nearest emergency room if experiencing loss of consciousness, dizziness, chest pain, shortness of breath, vomiting/abdominal pain, speech difficulties, motor weakness or any unusual symptoms. CHRIS ARGUETA NP Sep 09, 2017 11:25
[2017-09-09] MEDS ORDERED: METO5TAB58 PO (11:27)
[2017-09-09] MEDS ORDERED: ONDA4TAB8 PO (11:27)
[2017-09-09] MEDS ORDERED: FAMO20TA18 PO (11:27)
--- NOTE | 2017-09-09 11:37 | DS ---
Date/Time of Note Date/Time of Note DATE: 09/09/17 TIME: 11:34 Discharge Summary Admission/Discharge Info Admit Date/Time Sep 06, 2017 at 14:43 Discharge Date/Time Discharge Diagnosis 1. Possible partial small bowel obstruction versus postoperative ileus. Clinically improved. 2. Status post recent appendectomy. 3. Possible GERD. Patient Condition: Stable Consults Dr. Dorsey, surgery Procedures 09/06/2017. CT ABDOMEN AND PELVIS WITHOUT CONTRAST. CT abdomen: The lung bases are clear. The heart size is within normal limits. There is no significant pericardial effusion. Hepatic morphology is within normal limits. No gross contour deforming masses. The gallbladder is within normal normal limits. No evidence of intrahepatic or extrahepatic biliary dilatation. The spleen and pancreas are within normal limits. Both adrenal glands are within normal limits. Both kidneys are in normal anatomic position. No evidence of obstruction or hydronephrosis. No gross renal/ureteric calculi. The visualized GI tract demonstrate multiple loops of dilated small bowel. There appears to be a possible transition point within the lower abdomen/pelvis within a loop of distal small bowel. There is collapse of distal small bowel loops. Postsurgical changes are noted in the region of the cecum. The unenhanced aorta is unremarkable. There is no significant retroperitoneal lymphadenopathy. CT pelvis: The bladder is within normal limits. Free fluid is noted within the pelvis. Rectosigmoid colon is partially collapsed. No significant pelvic lymphadenopathy. The visualized osseous structures demonstrate mild grade 1 retrolisthesis of L5- S1. IMPRESSION: 1. MULTIPLE LOOPS OF DILATED FLUID-FILLED SMALL BOWEL. THERE APPEARS TO BE TRANSITION POINT AND COLLAPSE OF DISTAL LOOPS OF SMALL BOWEL WITHIN THE LOWER ABDOMEN/PELVIS. FINDINGS ARE CONCERNING FOR SMALL BOWEL OBSTRUCTION, POSSIBLY SECONDARY TO UNDERLYING ADHESION. CONSIDER FOLLOW-UP SMALL BOWEL SERIES. 2. Postsurgical changes are noted overlying the cecum. Correlate with possible history of prior appendectomy. 3. Small amount nonspecific free fluid within the pelvis. 09/07/2017. X-ray small bowel follow-through. FINDINGS: Several mildly to moderately dilated small bowel loops are noted measuring up to 3.5 cm in diameter which is concerning for partial obstruction versus ileus. Contrast flows through the bowel loops and reaches the colon as early as 45 minutes. IMPRESSION: 1. Mildly to moderately dilated small bowel loops concerning for partial obstruction versus ileus. Hospital Course This is a 26-year-old male with a recent appendectomy, presenting to the emergency room with abdominal pain and intractable nonbilious, nonbloody vomiting started early this morning who was noted with possible small bowel obstruction in the imaging. Patient had IV fluids and NG tube decompression in the emergency room and was admitted. Patient was seen by surgery colleagues. Patient was treated with bowel rest with IV fluids, Reglan, Zofran and pain medications. Patient did not have any further abdominal pain . NG tube without any drainage. A small bowel x-ray was done and revealed partial small bowel obstruction versus possible ileus. Patient had clinical improvement as evidenced by passing flatus and having regular bowel movements. NG tube was then discontinued and he was started on a clear diet per surgery advised. He was able to tolerate diet and was advanced to regular without any further abdominal discomfort. At this time, patient is feeling back to baseline and he is stable for outpatient follow-up per surgery standpoint. 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 Disposition: Home. Approximately 60 minute was spent in coordinating the discharge on this patient. Patient was seen in collaboration with [facility] [employer] Ondansetron Hcl* (Zofran*) 4 Mg Tablet, 4 MG PO Q6H Y for NAUSEA AND OR VOMITING , #20 TAB Prov:ARGUETA,CHRIS V. PROMOTIONS DIRECTOR 09/09/17 Metoclopramide* (Reglan*) 5 Mg Tablet, 5 MG PO AC MEALS, #21 TAB Prov:ARGUETA,CHRIS V. PROMOTIONS DIRECTOR 09/09/17 Famotidine* (Famotidine*) 20 Mg Tablet, 20 MG PO HS, #30 TAB Prov:ARGUETACATHERINEA V. PROMOTIONS DIRECTOR 09/09/17 Follow-up Plan 1.Follow up with primary care physician in 1 week If you don't have one please let someone know, we can give you resources that may help you pick one. You may also call your insurance company to assign one to you. Review your medication list with your nurse before leaving and if you need new prescriptions please let your nurse know. I may have made changes to your home medications or given you new prescriptions, please let your primary doctor know as well. Stay compliant with your medications and report any side effects to your PCP or pharmacist. Return to the ER if you have any concerns and cannot reach your doctors or call your insurance company, they usually have a nurse that can help you. 2. Call 911 or go to the nearest emergency room if experiencing loss of consciousness, dizziness, chest pain, shortness of breath, vomiting/abdominal pain, speech difficulties, motor weakness or any unusual symptoms. Primary Care Provider Care Physician No Primary Pending Labs Laboratory Tests Test 09/09/17 05:11 White Blood Count 6.210^3/ul (4.8-10.8) Red Blood Count 4.6410^6/ul (4.70-6.10) Hemoglobin 14.2g/dl (14.0-18.0) Hematocrit 40.3% (42.0-52.0) Mean Corpuscular Volume 86.9fl (82.0-101.0) Mean Corpuscular Hemoglobin 30.6pg (29.0-33.0) Mean Corpuscular Hemoglobin Concent 35.2g/dl (32.0-37.0) Red Cell Distribution Width 11.5% (11.5-14.5) Platelet Count 13444^3/UL (140-415) Mean Platelet Volume 9.0fl (7.4-10.4) Neutrophils % 56.9% (39.0-77.0) Lymphocytes % 27.6% (15.0-51.0) Monocytes % 11.9% (0.0-11.0) Eosinophils % 2.8% (0.0-7.0) Basophils % 0.5% (0.0-2.0) Nucleated Red Blood Cells % 0.0/100WBC (0.0-0.0) Neutrophils # 3.510^3/ul (1.6-7.5) Lymphocytes # 1.710^3/ul (0.8-2.9) Monocytes # 0.710^3/ul (0.3-0.9) Eosinophils # 0.210^3/ul (0.0-0.5) Basophils # 0.010^3/ul (0.0-0.1) Nucleated Red Blood Cells # 0.010^3/ul (0.0-0.0) Sodium Level 142mmol/L (135-144) Potassium Level 4.1mmol/L (3.5-5.1) Chloride Level 103mmol/L (97-110) Carbon Dioxide Level 30mmol/L (21-31) Anion Gap 13 (8-16) Blood Urea Nitrogen 8mg/dl (7-20) Creatinine 1.08mg/dl (0.61-1.24) Glucose Level 93mg/dl (70-220) Calcium Level 8.9mg/dl (8.4-10.2) Magnesium Level 1.8mg/dl (1.7-2.5) CHRIS ARGUETA V. PROMOTIONS DIRECTOR Sep 09, 2017 11:37
== END 2017-09-09 14:32 | disposition home or self-care (01) | DRG 390 ==
LOC: FTE 10:36 → MS1 14:43
PROVIDERS: ADMIT Family Medicine; ATTEND Family Medicine
DX: K91.30 Postprocedural intestinal obstruction, unspecified as to partial versus complete (principal); K21.9 Gastro-esophageal reflux disease without esophagitis
CPT/HCPCS: 36415; 71010; 74176; 74250; 80048; 80053; 80061; 83036; 83690; 83735; 84100; 84443; 85025; 90686; 96374; 96375; C9113; J2270; J2405; J2765; J3480; J7030; J7040